=== PATIENT | female | born 1995 | race Caucasian/White ===

== ENCOUNTER 2018-03-04 21:43 | Emergency (ER) | payer OTHER ==
--- NOTE | 2018-03-04 22:46 | EDM.PDOC ---
ED HPI GENERAL MEDICAL PROBLEM - General Chief Complaint: Syncope Stated Complaint: PASSED OUT Time Seen by Provider: 03/04/18 22:00 Source of Information: Reports: Patient History Limitations: Reports: No Limitations - History of Present Illness INITIAL COMMENTS - FREE TEXT/NARRATIVE: She was beginning to take a bath and was filling the tub. She drank some water and got choked a little. She began to panic and then seemed to pass out. she may have bumped her head but was on her hands and knees at the time. She wonders if maybe she aspirated some water. She feels better but not quite back to normal. Head Pain Score (Numeric/FACES): 2 - Related Data Allergies Allergy/AdvReac Type Severity Reaction Status Date / Time No Known Allergies Allergy Verified 03/04/18 22:07 Home Meds: Home Meds NK [No Known Home Meds] 03/04/18 [History] Past Medical History Psychiatric History: Reports: Anxiety Social & Family History - Tobacco Use Smoking Status *Q: Never Smoker Second Hand Smoke Exposure: No - Caffeine Use Caffeine Use: Reports: Coffee - Alcohol Use Days Per Week of Alcohol Use: 0 - Recreational Drug Use Recreational Drug Use: No ED ROS GENERAL - Review of Systems Review Of Systems: See Below Constitutional: Denies: Fever, Chills HEENT: Reports: No Symptoms Respiratory: Reports: Other (chest feels a little funny, maybe some vague sternal discomfort when she breathes) Cardiovascular: Reports: No Symptoms Endocrine: Denies: Fatigue, Polyuria GI/Abdominal: Reports: No Symptoms : Reports: No Symptoms, Other (no chance of ) Musculoskeletal: Reports: Other (neck very slightly stiff but no pain) Skin: Reports: No Symptoms Neurological: Reports: Other (may have bumped head) Psychiatric: Reports: No Symptoms - Physical Exam Exam: See Below Exam Limited By: No Limitations General Appearance: Alert, WD/WN, No Apparent Distress Eye Exam: Bilateral Eye: EOMI, PERRL Ears: Normal TMs Nose: Normal Inspection Throat/Mouth: Normal Inspection, Normal Oropharynx Head Exam: Atraumatic, Normocephalic. No: Scalp Swelling, Scalp Abrasions, Scalp Ecchymosis, Scalp Hematoma, Scalp Tenderness Neck: Supple, Non-Tender, Full Range of Motion Respiratory/Chest: Lungs Clear Cardiovascular: Regular Rate, Rhythm, No Murmur GI/Abdominal: Non-Tender Extremities: Normal Inspection, Non-Tender Psychiatric: Normal Affect, Normal Mood Skin Exam: Warm, Dry, Intact, Normal Color Course - Vital Signs Last Recorded V/S: Last Vital Signs Temp 36.1 C 03/04/18 22:04 Pulse 55 L 03/04/18 22:04 Resp 16 03/04/18 22:04 BP 142/73 H 03/04/18 22:04 Pulse Ox 98 03/04/18 22:04 Departure - Departure Time of Disposition: 22:47 Disposition: Home, Self-Care 01 Condition: Fair Clinical Impression: Vasovagal syncope - Discharge Information Referrals: PCP,None [Primary Care Provider] - Additional Instructions: Most likely you had a "vasovagal" episode when you choked. This causes a drop in heart rate and blood pressure and can make you pass out. You appear to be healthy and so no testing is indicated. Just be sure to have a good fluid intake every day. If you feel dizzy again then you should immediately sit down. Return to the ER if needed or see your doctor.
== END 2018-03-04 23:03 | disposition home or self-care (01) ==
LOC: JP.ED 21:43
DX: R55 Syncope and collapse (principal)
CPT/HCPCS: 99284